=== PATIENT | female | born 1945 | race Caucasian/White ===

== ENCOUNTER 2024-12-20 06:25 | Inpatient (IN) | payer OTHER ==
[~2024-12-20] VITALS: Ht 160 cm; Wt 45.4 kg
[2024-12-20] VITALS (8 sets, daily range): BP systolic 129–145; BP diastolic 81–83; TEMP 97.9–98.3; O2SAT 96–100
[2024-12-20] MEDS ORDERED: CEFTRIAXONE 1GM BAG (ER ONLY) 50 ML IV ONE (06:48)
[2024-12-20] MEDS: CEFTRIAXONE 1GM BAG (ER ONLY) 1 GM/50 ML PIGGYBACK IV ONE (06:51)
[2024-12-20] MEDS ORDERED: ALBUTEROL FS 2.5 MG/3 ML VIAL.NEB ONE (06:56)
[2024-12-20] MEDS ORDERED: IPRATROPIUM NEB FS 0.5 MG/2.5 ML AMPUL.NEB ONE (06:56)
[2024-12-20 07:01] LABS: PLATELET COUNT (AUTO) 191 K/uL (150-450); RED BLOOD CELL COUNT(AUTO) 4.20 MIL/uL (4.0-5.2); RED CELL DISTRIBUTION WIDTH 14.6 % (11.5-15.0); WHITE BLOOD COUNT (AUTO) 5.2 K/uL (4.3-11.0)
[2024-12-20] MEDS: IPRATROPIUM NEB FS 0.5 MG/2.5 ML AMPUL.NEB NEB ONE (07:08)
[2024-12-20] MEDS: ALBUTEROL FS 2.5 MG/3 ML VIAL.NEB NEB ONE (07:08)
[2024-12-20 07:09] LABS: CALCIUM, SERUM 8.3 mg/dL (8.5-10.1); CREATININE 1.1 mg/dL (0.6-1.3); SODIUM SERUM 139 mmol/L (136-145); UREA NITROGEN, BLOOD 17 mg/dL (7-18)
[2024-12-20 07:18] LABS: LACTIC ACID 3.6 mmol/L (0.4-2.0)
[2024-12-20] MEDS ORDERED: IOHEXOL-350 100 ML VIAL IV ONE (07:58)
[2024-12-20] MEDS ORDERED: CT SWABBABLE VALVE TRANS SET 1 EA INFUS.SET MC ONE (07:59)
[2024-12-20] MEDS ORDERED: IV NS 0.9% 250 ML IV ONE (07:59)
[2024-12-20 08:03] LABS: APPEARANCE,URINE CLEAR (CLEAR); BLOOD, URINE 3+ Ery/uL (NEGATIVE); LEUKOCYTE ESTERASE ,URINE NEGATIVE (NEGATIVE); NITRITE, URINE NEGATIVE (NEGATIVE); UGLUCOSE 2+ mg/dL (NEGATIVE)
[2024-12-20] MEDS ORDERED: FUROSEMIDE 20 MG/2 ML VIAL ONE (08:31)
[2024-12-20] MEDS: FUROSEMIDE 20 MG/2 ML VIAL IV ONE (08:35)
[2024-12-20 08:42] LABS: ADD URINE CULTURE NO; SQUAMOUS EPITHELIAL CELL,UR Rare /HPF (None Seen)
[2024-12-20 09:22] LABS: LACTIC ACID REFLEX 3.4 mmol/L (0.4-1.9)
[2024-12-20] MEDS: ALBUTEROL HALF STRENGTH 1.25 MG/3 ML VIAL.NEB NEB SCH (10:00)
[2024-12-20] MEDS: IPRATROPIUM NEB FS 0.5 MG/2.5 ML AMPUL.NEB NEB SCH ×2 (10:00→19:30)
[2024-12-20] MEDS ORDERED: MAG HYDROX/AL HYDROX/SIMETH 30 ML UDC PO PRN (11:30)
[2024-12-20] MEDS ORDERED: ACETAMINOPHEN 325 MG TABLET PO PRN (11:30)
[2024-12-20] MEDS ORDERED: ONDANSETRON HCL/PF 4 MG/2 ML VIAL IVP PRN (11:30)
[2024-12-20] MEDS ORDERED: CEFTRIAXONE 1 G in IV D5W 50 ML IV SCH (11:30)
[2024-12-20] MEDS ORDERED: Z GUARD REMEDY 4 OZ OINT TP PRN (11:30)
[2024-12-20] MEDS ORDERED: MAGNESIUM HYDROXIDE 30 ML UDC PO PRN (11:30)
[2024-12-20] MEDS ORDERED: ENOXAPARIN SODIUM 30 MG/0.3 ML DISP.SYRIN SQ SCH (11:30)
[2024-12-20] MEDS: POTASSIUM CHLORIDE 20 MEQ TAB.PRT.SR PO SCH (13:02)
[2024-12-20] MEDS: AZITHROMYCIN 250 MG TABLET PO ONE (13:02)
[2024-12-20] MEDS ORDERED: MAGN71.5 PO (14:28)
[2024-12-20] MEDS ORDERED: NEBI5TAB8 PO (14:28)
[2024-12-20] MEDS ORDERED: ALBU18HF2 IH (14:28)
[2024-12-20] MEDS ORDERED: ASPI-1420 PO (14:28)
[2024-12-20] MEDS ORDERED: ROSU10TA2 PO (14:28)
[2024-12-20] MEDS ORDERED: FURO40TA5 PO (14:28)
[2024-12-20] MEDS ORDERED: SPIR25TA6 PO (14:28)
[2024-12-20] MEDS ORDERED: TIOT4MIS5 IH (14:28)
[2024-12-20] MEDS ORDERED: SACU1TAB4 PO (14:28)
[2024-12-20] MEDS ORDERED: ALBU0.633 IH (14:28)
[2024-12-20] MEDS ORDERED: ASCO100058 PO (14:28)
[2024-12-20] MEDS ORDERED: FUROSEMIDE 20 MG/2 ML VIAL IV SCH (17:00)
[2024-12-20] MEDS: METOPROLOL TARTRATE 25 MG TABLET PO SCH (21:26)
[2024-12-21] VITALS (14 sets, daily range): BP systolic 90–139; BP diastolic 58–111; TEMP 97.3–97.9; O2SAT 94–100
[2024-12-21] MEDS: CEFTRIAXONE 1 G in IV D5W 50 ML IV SCH (06:19)
[2024-12-21 07:32] LABS: PLATELET COUNT (AUTO) 183 K/uL (150-450); RED BLOOD CELL COUNT(AUTO) 4.06 MIL/uL (4.0-5.2); RED CELL DISTRIBUTION WIDTH 14.2 % (11.5-15.0); WHITE BLOOD COUNT (AUTO) 8.6 K/uL (4.3-11.0)
[2024-12-21 07:51] LABS: LACTIC ACID 1.4 mmol/L (0.4-2.0)
[2024-12-21 08:03] LABS: CALCIUM, SERUM 8.8 mg/dL (8.5-10.1); CREATININE 0.9 mg/dL (0.6-1.3); PHOSPHORUS 3.5 mg/dL (2.5-4.9); SODIUM SERUM 142.0 mmol/L (136-145); UREA NITROGEN, BLOOD 28.0 mg/dL (7-18)
[2024-12-21 08:05] LABS: LDL 53.0 mg/dL (0-99)
[2024-12-21] MEDS ORDERED: ENOXAPARIN SODIUM 30 MG/0.3 ML DISP.SYRIN SQ SCH (09:00)
[2024-12-21] MEDS: FUROSEMIDE 40 MG/4 ML VIAL IV SCH (09:00)
[2024-12-21] MEDS: PANTOPRAZOLE 40 MG TABLET.DR PO SCH (09:34)
[2024-12-21] MEDS: AZITHROMYCIN 250 MG TABLET PO SCH (09:35)
[2024-12-21] MEDS: ATORVASTATIN 40 MG TABLET PO SCH (09:35)
[2024-12-21] MEDS: POTASSIUM CHLORIDE 20 MEQ TAB.PRT.SR PO SCH (09:35)
[2024-12-21] MEDS: ASCORBIC ACID 500 MG TABLET PO SCH (09:35)
[2024-12-21] MEDS: SPIRONOLACTONE 25 MG TABLET PO SCH (09:35)
[2024-12-21] MEDS: FUROSEMIDE 20 MG/2 ML VIAL IV SCH (09:36)
[2024-12-21] MEDS: ASPIRIN EC 81 MG TABLET.DR PO SCH (09:36)
[2024-12-21] MEDS ORDERED: AZITHROMYCIN 250 MG TABLET PO SCH (11:30)
== END 2024-12-21 22:08 | disposition short-term general hospital (02) | DRG 280 ==
LOC: ER 06:34 → TELE 08:46 → MED 12-21 12:35
PROVIDERS: ATTEND Registered Nurse Psychiatric/Mental Health
DX: I11.0 Hypertensive heart disease with heart failure (principal); I50.23 Acute on chronic systolic (congestive) heart failure; I21.A1 Myocardial infarction type 2; J96.01 Acute respiratory failure with hypoxia; J90 Pleural effusion, not elsewhere classified; J44.1 Chronic obstructive pulmonary disease with (acute) exacerbation; J98.11 Atelectasis; N39.0 Urinary tract infection, site not specified; E87.20 Acidosis, unspecified; J84.9 Interstitial pulmonary disease, unspecified; I50.9 Heart failure, unspecified; Z20.822 Contact with and (suspected) exposure to COVID-19; Z95.0 Presence of cardiac pacemaker; R91.1 Solitary pulmonary nodule; B96.89 Other specified bacterial agents as the cause of diseases classified elsewhere; E87.6 Hypokalemia; E78.5 Hyperlipidemia, unspecified; F17.200 Nicotine dependence, unspecified, uncomplicated; J43.9 Emphysema, unspecified; E11.65 Type 2 diabetes mellitus with hyperglycemia; Z79.82 Long term (current) use of aspirin; Z79.51 Long term (current) use of inhaled steroids; Z79.899 Other long term (current) drug therapy; R79.89 Other specified abnormal findings of blood chemistry
CPT/HCPCS: 36415; 71045-TC; 80048-TC; 80061-TC; 81001; 82247-TC; 82248-TC; 83605-TC; 83735-TC; 83880; 84100-TC; 84484-TC; 85025-TC; 85378-TC; 87040-TC; 87086-TC; 93307-TC; 93970-TC; 94760-TC; 94799-TC; 97112-TC; 97116-TC; 97530-TC; 99082-TC; A4223; G0378; J0696; J1938; J2919; J7050; J7060; Q9967